=== PATIENT | female | born 1955 | race African-American/Black ===

== ENCOUNTER 2018-06-22 17:38 | Emergency (ER) | payer MEDICARE, OTHER ==
[~2018-06-22] VITALS: Ht 154.9 cm; Wt 83.9 kg
[2018-06-22] MEDS ORDERED: ADVAIR INH (17:59)
[2018-06-22] MEDS ORDERED: ALBU8HFA4 INH (17:59)
--- NOTE | 2018-06-22 19:03 | NUR ---
EKG DONE, SBAR REPORT TO [facility]FT
[2018-06-22] MEDS ORDERED: ALBUTEROL SULFATE 2.5 MG/3 ML NEBU NEB ONE ×2 (19:30→20:45)
[2018-06-22] MEDS ORDERED: ALBUTEROL SULFATE 2.5 MG/3 ML NEBU ONE ×2 (19:44→20:49)
[2018-06-22 19:53] LABS: BASOPHILS # (AUTO) 0.1 K/uL (0.0-8.0); BASOPHILS % (AUTO) 1.2 % (0.0-2.0); EOSINOPHILS # (AUTO) 0.2 K/uL (0.0-0.7); EOSINOPHILS % (AUTO) 2.6 % (0.0-7.0); HEMATOCRIT 39.3 % (31.2-41.9); HEMOGLOBIN 13.1 g/dL (10.9-14.3); LYMPHOCYTES % (AUTO) 32.9 % (20.5-51.5); MEAN CORPUSCULAR HEMOGLOBIN 31.2 uug (24.7-32.8); MEAN CORPUSCULAR HGB CONC 33 g/dL (32.3-35.6); MEAN CORPUSCULAR VOLUME 93.7 fL (75.5-95.3); MONOCYTES # (AUTO) 0.8 K/uL (2.0-10.0); MONOCYTES % (AUTO) 8.3 % (0.0-11.0); PLATELET COUNT (AUTO) 233 K/uL (179-408); RED BLOOD CELL COUNT(AUTO) 4.19 MIL/uL (3.63-4.92); WHITE BLOOD COUNT (AUTO) 9.1 K/uL (3.8-11.8)
[2018-06-22 19:58] LABS: CREATININE 0.8 mg/dL (0.6-1.3)
[2018-06-22 20:11] LABS: BILIRUBIN,DIRECT 0.1 mg/dL (0.0-0.2); BILIRUBIN,TOTAL 0.2 mg/dL (0.2-1.0); TOTAL PROTEIN, SERUM 7.3 g/dL (6.4-8.2)
[2018-06-22] MEDS ORDERED: IPRATROPIUM BROMIDE 0.5 MG/2.5 ML NEBU NEB ONE (20:45)
[2018-06-22] MEDS ORDERED: predniSONE 50 MG TABLET PO ONE (20:45)
[2018-06-22] MEDS ORDERED: ALBUTEROL SULFATE 2.5 MG/ 0.5 ML NEBU ONE (20:49)
[2018-06-22] MEDS ORDERED: predniSONE 50 MG TABLET ONE (20:52)
[2018-06-22] MEDS ORDERED: ACETAMINOPHEN ES 500 MG TABLET ONE (21:35)
--- NOTE | 2018-06-22 21:43 | NUR ---
Lashawn [email or web address] at 2045 along with the albuterol.
[2018-06-22] MEDS ORDERED: MAG HYDROX/AL HYDROX/SIMETH 30 ML LIQUID UDC ONE (21:45)
[2018-06-22] MEDS ORDERED: MAG HYDROX/AL HYDROX/SIMETH 30 ML LIQUID UDC PO ONE (21:45)
[2018-06-22] MEDS ORDERED: PANTOPRAZOLE SODIUM 40 MG TABLET.DR PO ONE ×2 (21:45)
[2018-06-22] MEDS ORDERED: ACETAMINOPHEN ES 500 MG TABLET PO ONE (21:45)
--- NOTE | 2018-06-22 21:45 | NUR ---
PATIENT STATES "I FEEL ALOT BETTER NOW."
[2018-06-22 21:56] VITALS: BP 130/72
--- NOTE | 2018-06-22 22:11 | NUR ---
Patient discharged to home in stable conditon. Written and verbal after care instructions given. Patient verbalizes understanding of instructions. WALKED OUT OF ER WITH NO DISTRESS NOTED
== END 2018-06-22 22:12 | disposition home or self-care (01) ==
LOC: ER 17:47
DX: J45.901 Unspecified asthma with (acute) exacerbation (principal); Z77.22 Contact with and (suspected) exposure to environmental tobacco smoke (acute) (chronic)
CPT/HCPCS: 36415; 71045; 80048; 80076; 83880; 84484; 85025; 87040 ×2; 93005; 94640 ×2; 99285; J7512; 70030-TC; A4663; A9150